=== PATIENT | female | born 1950 | race Caucasian/White ===

== ENCOUNTER 2018-12-07 11:40 | Emergency (ER) | payer MEDICARE ==
[~2018-12-07] VITALS: Ht 157.5 cm; Wt 81.8 kg
[2018-12-07 12:20] VITALS: Ht 157.5 cm; Wt 81.8 kg
[2018-12-07] MEDS ORDERED: EFFEXOR75 MG PO (12:23)
[2018-12-07] MEDS ORDERED: NORVASC5 MG PO (12:23)
[2018-12-07] MEDS ORDERED: DEPAKOTE500 MG PO (12:24)
[2018-12-07] MEDS ORDERED: COREG25 MG PO (12:24)
[2018-12-07] MEDS ORDERED: KLOR-CON 1010 MEQ PO (12:24)
[2018-12-07] MEDS ORDERED: LISINOPRIL20 MG PO (12:25)
[2018-12-07] MEDS ORDERED: ZOCOR40 MG PO (12:25)
[2018-12-07] MEDS ORDERED: CO Q-10100 MG PO (12:26)
[2018-12-07] MEDS ORDERED: BAYER CHEWABLE81 MG PO (12:26)
[2018-12-07] MEDS ORDERED: VITAMIN D31000 UNIT PO (12:26)
[2018-12-07] MEDS ORDERED: PLAVIX75 MG PO (12:29)
[2018-12-07 15:19] LABS: CALC OSMOLALITY 293 mosm/kg (275-300); CALCIUM 8.9 mg/dL (8.5-10.1); CARBON DIOXIDE 28.3 mmol/L (21.0-32.0); CHLORIDE - SERUM 109 mmol/L (98-107); CREATININE - SERUM 0.8 mg/dL (0.6-1.3); GLUCOSE 89 mg/dL (74-106); POTASSIUM - SERUM 4.2 mmol/L (3.5-5.1); SODIUM 145 mmol/L (136-145); UREA NITROGEN 28 mg/dL (7-18); eGFR NON AFRICAN AMERICAN 75 mL/min (90-120)
[2018-12-07 15:25] LABS: ALBUMIN 3.7 g/dL (3.4-5.0); ALKALINE PHOSPHATASE 99 U/L (46-116); ALT (SGPT) 32 U/L (10-68); BILIRUBIN - TOTAL 0.49 mg/dL (0.2-1.3); PROTEIN - SERUM 7.8 g/dL (6.4-8.2)
[2018-12-07 15:33] LABS: BASOPHILS 0.4 % (0-2); EOSINOPHILS 0.8 % (0-7); HEMATOCRIT 43.8 % (36.0-48.0); HEMOGLOBIN 14.2 g/dL (12-16); IMMATURE GRANULOCYTES 0.3 % (0-5); LYMPHOCYTES 30.4 % (15-50); MCHC 32.4 g/dL (31.0-37.0); MCV 92.4 fL (80.0-100.0); MEAN PLATELET VOLUME 10.3 fL (7.4-10.4); MONOCYTES 5.9 % (2-11); NEUTROPHILS 62.2 % (40-80); PLATELET COUNT 219 10x3/uL (130-400); RBC 4.74 10x6/uL (4.00-5.40); RDW 12.4 % (11.5-14.5)
[2018-12-07 16:42] LABS: APPEARANCE CLEAR (CLEAR); BILIRUBIN NEGATIVE (NEGATIVE); COLOR YELLOW (YELLOW); GLUCOSE NEGATIVE (NEGATIVE); KETONE NEGATIVE (NEGATIVE); NITRITE NEGATIVE (NEGATIVE); PROTEIN NEGATIVE (NEGATIVE); UROBILINOGEN NORMAL (NORMAL)
[2018-12-07 16:43] LABS: WHITE CELLS - URINE 0-5 /hpf (NEGATIVE)
[2018-12-07 16:44] LABS: BACTERIA MODERATE /hpf (NEGATIVE)
[2018-12-07 20:31] VITALS: BP 169/88
== END 2018-12-07 20:32 | disposition short-term general hospital (02) ==
LOC: D.ER 11:40
PROVIDERS: Family Medicine
DX: M62.81 Muscle weakness (generalized) (principal); I25.10 Atherosclerotic heart disease of native coronary artery without angina pectoris; I10 Essential (primary) hypertension